=== PATIENT | female | born 1990 | race African-American/Black ===

== ENCOUNTER 2018-11-09 14:58 | Emergency (ER) | payer OTHER | END 2018-11-09 16:20 | disposition home or self-care (01) | LOC: ERS 14:58 | DX: S13.4XXA Sprain of ligaments of cervical spine, initial encounter (principal); S33.5XXA Sprain of ligaments of lumbar spine, initial encounter; Z79.899 Other long term (current) drug therapy; V89.2XXA Person injured in unspecified motor-vehicle accident, traffic, initial encounter | CPT/HCPCS: 99283 ==

== ENCOUNTER 2019-01-26 14:19 | Day surgery (SDC) | payer OTHER ==
[2019-01-26 14:43] VITALS: BMI 24.3
[2019-01-26] MEDS ORDERED: Polyethylene Glycol 3350 17 GM Packet PO PRN (16:32)
[2019-01-26] MEDS ORDERED: Labetalol HCl 100 MG/20 ML VIAL SLOW IVP PRN (20:22)
[2019-01-26] MEDS ORDERED: Furosemide 20 MG TAB PO SCH (20:30)
[2019-01-26] MEDS ORDERED: Furosemide 40 MG TAB PO SCH (20:30)
[2019-01-26] MEDS: Acetaminophen 325 MG TAB PO PRN (20:44)
[2019-01-26] MEDS: Amiodarone 200 MG TAB PO SCH (20:45)
[2019-01-26] MEDS: Ursodiol 300 MG CAP PO SCH (20:45)
[2019-01-26] MEDS: Metoprolol Tartrate 25 MG TAB PO SCH (20:45)
[2019-01-27] MEDS ORDERED: Furosemide 40 MG/4 ML VIAL SLOW IVP SCH (06:15)
[2019-01-27] MEDS ORDERED: Spironolactone 25 MG TAB PO SCH (08:00)
[2019-01-27] MEDS: Amiodarone 200 MG TAB PO SCH (08:19)
[2019-01-27] MEDS: Metoprolol Tartrate 25 MG TAB PO SCH (08:19)
[2019-01-27] MEDS: Ursodiol 300 MG CAP PO SCH (08:19)
[2019-01-27 08:42] VITALS: TEMP 97.8
[2019-01-27] MEDS ORDERED: Aspirin 81 mg Enteric Coated Tablet PO SCH (09:00)
[2019-01-27] MEDS ORDERED: Ferrous Sulfate 325 MG TAB PO SCH (09:00)
[2019-01-27] MEDS ORDERED: Magnesium Oxide 400 MG TAB PO SCH (09:00)
[2019-01-27] MEDS: Acetaminophen 325 MG TAB PO PRN (12:11)
[2019-01-27 12:14] VITALS: BP 97/53
[2019-01-27] MEDS ORDERED: Furosemide 20 MG TAB PO SCH (14:00)
== END 2019-01-27 18:32 | disposition home or self-care (01) ==
LOC: SDC/OP 14:19 → ONC 14:21 → SDC/OP 01-27 18:32
PROVIDERS: ATTEND Family Medicine
DX: E88.09 Other disorders of plasma-protein metabolism, not elsewhere classified (principal); Z88.5 Allergy status to narcotic agent; Z79.82 Long term (current) use of aspirin; Z79.899 Other long term (current) drug therapy
CPT/HCPCS: 36415; 80053; 80074; 85007; 85027; 85060; 86038; 86160; 86225; 96365; 96366; J1940; P9045

== ENCOUNTER 2019-08-17 10:28 | Outpatient (CLI) | payer OTHER ==
--- NOTE | 2019-08-17 11:03 | ULT ---
US Hepatic Doppler History: Ascites Comparison: None. Findings: Real-time grayscale and color evaluation of the liver was performed. The visualized portions of the pancreas is unremarkable. The liver measures 16.8 cm in length. There is coarsened hepatic echotexture with subtle nodular contour. Hepatic veins are patent. Portal vein is patent with antegrade flow. Small volume perihepatic ascites. Small right perihepatic ascites. Small gallbladder polyps, sub-5 mm. No gallbladder wall thickening. Common bile duct measures 3 mm. Spleen measures 12.5 cm in length. Impression: 1. Coarsened hepatic echotexture with nodular contour indicating cirrhosis. 2. Splenomegaly suggesting component of underlying hepatic dysfunction/portal hypertension which may be sequela of chronic congestive changes from diastolic cardiac dysfunction. 3. Antegrade portal and hepatic venous flow. 4. Sub-5 mm gallbladder polyps which do not require follow-up. 5. No acute inflammatory process. 6. Small volume free fluid.
== END 2019-08-17 10:29 | disposition home or self-care (01) ==
LOC: BICULT 10:28
PROVIDERS: ATTEND Physician Assistant Medical
DX: K76.1 Chronic passive congestion of liver (principal); R18.8 Other ascites; R16.1 Splenomegaly, not elsewhere classified; K82.4 Cholesterolosis of gallbladder; K76.89 Other specified diseases of liver
CPT/HCPCS: 76705

== ENCOUNTER 2019-08-19 19:50 | Emergency (ER) | payer OTHER ==
[~2019-08-19 19:50] MED LIST: Iopamidol-370 76% 500 ML 1 ML ONE
[2019-08-19 21:43] LABS: BHCG - Serum Negative (NEGATIVE); Pregs Control Background? CLEAR/WHITE (CLR/WHITE); Pregs Control Bar Appear? YES (CONTROL BAR)
[2019-08-19 21:57] LABS: Hemoglobin 11.2 g/dL (12.0-16.0); Mean Corpuscular HGB CONC 31.5 g/dL (32.0-36.0); Mean Corpuscular Hemoglobin 23.9 pg (27.0-31.0); Mean Platelet Volume 11.8 fL (7.4-10.4); Platelet Count 165 thou/uL (130-400); RBC Distribution Width 15.8 % (11.5-14.5); Red Blood Cell (RBC) Count 4.67 mill/uL (4.20-5.40); White Blood Cell (WBC) Count 4.3 thou/uL (4.8-10.8)
[2019-08-19 21:59] LABS: #Basophils 0.1 thou/uL (0.0-0.2); #Eosinphils 0.2 thou/uL (0.0-0.7); #Lymphocytes 0.5 thou/uL (1.20-3.40); #Monocytes 0.4 thou/uL (0.11-0.59); #Neutrophils 3.1 thou/uL (1.40-6.50); %Basophils 1.8 % (0.0-1.0); %Eosinophils 3.8 % (0.0-10.0); %Lymphocytes 12.4 % (21.0-51.0); %Monocytes 9.5 % (0.0-10.0); %Neutrophils 72.5 % (42.0-75.0); Large Platelets SLIGHT; MDiff Complete? YES; Platelet Morphology Comment Appears Adequate
[2019-08-19 22:01] LABS: ALT (SGPT) Less than 7 U/L (8-55); AST (SGOT) 29 U/L (5-34); Albumin 2.6 g/dL (3.5-5.0); Alkaline Phosphatase 64 U/L (40-110); Anion Gap 11 mmol/L (10-20); BUN (Urea Nitrogen) 7 mg/dL (7.0-18.7); Bilirubin, Total 0.2 mg/dL (0.2-1.2); Calc. Creatinine Clearance 0 mL/min (70-130); Calcium 7.7 mg/dL (7.8-10.44); Carbon Dioxide 21 mmol/L (22-29); Chloride 110 mmol/L (98-107); Estimated GFR-MDRD Greater than 90; Globulin 2.2 g/dL (2.4-3.5); Glucose 82 mg/dL (70-105); Lipase 32 U/L (8-78); Potassium 4.1 mmol/L (3.5-5.1); Protein, Total 4.8 g/dL (6.0-8.3); Sodium 138 mmol/L (136-145)
[2019-08-19 22:06] LABS: Bilirubin Small (Negative); Blood, Urine Negative (Negative); Clarity Clear (Clear); Glucose, Urine (Dipstick) Negative (Negative); Leukocyte Negative (Negative); Nitrite Negative (Negative); Protein, Urine (Dipstick) Negative (Neg-Trace)
--- NOTE | 2019-08-19 22:23 | CT ---
CT abdomen and pelvis: 08/19/2019 COMPARISON: 10/08/2011 HISTORY: Abdominal pain TECHNIQUE: Axial CT imaging at 5 mm intervals from lung bases through pubic symphysis with IV contras t. Coronal and sagittal reformatted imaging obtained. FINDINGS: There is an cardiac pacinggenerator within the subcutaneous fat of the mid left abdomen wit h leads extending into the cardiac region, stable when compared to prior imaging and incompletely visualized on this exam. There are embolization coils adjacent to the intrahepatic IVC, stable as wel l. The imaged lung bases appear grossly unremarkable. No free intraperitoneal air noted. The hepatic parenchyma is irregular, heterogeneous, and demonstrates a mildly lobulated peripheral co ntour, consistent with chronic hepatocellular disease, similar when compared to the 10/08/2011 exam. There is stable mild enlargement of the spleen suggesting portal hypertension. There is a fat-contain ing ventral hernia in the subxiphoid region, similar when compared to prior imaging. There is small volume perihepatic and perisplenic free fluid. There is a moderate amount of free fluid within bilate ral paracolic gutters and within the pelvis. The volume of fluid within the abdomen/pelvis is similar to slightly decreased when compared to the 2012 examination. The gallbladder, pancreas, and right adrenal gland are unremarkable. There is a new mass within the left upper quadrant which is inseparable from the superior pole of the left kidney medially as well as the left adrenal gland. This mass measures 3.1 cm and demonstrates Hounsfield units over 135. A left adrenal lesion is favored but an exophytic solid left renal mass is a possibility. Evaluation of the bowel is limited secondary to the degree of ascites present as well as secondary to the lack of oral contrast media. There is a focal area of prominent hyperdensity on axial image 29 adjacent to the aorta in the expect ed location of the IVC measuring 2.4 cm. This could represent a focally dilated IVC or more likely, a new retroperitoneal mass. There is mild heterogeneity of the blood within the left renal vein, similar when compared to the kaylene or examination, which may signify mixing artifact. A normal infrarenal IVC is not visualized. Question duplication of the infrarenal IVC. Dilated vascular structures are noted within the pelvis adjacent to the uterus and the urinary bladde r. The osseous structures demonstrate no worrisome lytic or blastic bone lesion. The bones appear somewh at hyperdense, which may signify a metabolic abnormality. IMPRESSION: Cirrhotic appearance of the liver with ascites and splenomegaly suggesting portal hyperte nsion. New masses are seen in the region of the aortocaval retroperitoneum and in the region of the left upp er quadrant. Findings may be related to interval development of hyperenhancing lymphadenopathy and/or hyperdense abdominal mass lesions. Pheochromocytoma is a possibility. Recommend follow-up with GI consultation. Additional chronic findings as described above. Jennifer Celis made aware at 10:20 PM via phone 08/19/2019
[2019-08-19 23:41] LABS: INR-International Normal Ratio 1.2; PTT 30.3 SEC (22.9-36.1); Prothrombin Time 15.3 SEC (12.0-14.7)
[2019-08-19] MEDS ORDERED: Morphine 4 MG/ML VIAL ONE (23:44)
[2019-08-19] MEDS ORDERED: Ondansetron PF 4 MG/2 ML Vial ONE (23:44)
== END 2019-08-20 00:47 | disposition home or self-care (01) ==
LOC: ERS 19:50
DX: K74.60 Unspecified cirrhosis of liver (principal); C48.0 Malignant neoplasm of retroperitoneum; I50.9 Heart failure, unspecified; Z79.899 Other long term (current) drug therapy; Z79.82 Long term (current) use of aspirin
CPT/HCPCS: 36415; 74177; 80053; 81003; 83690; 84703; 85025; 85610; 85730; 96374; 96375; J2270; J2405; Q9967